=== PATIENT | male | born 1990 | race African-American/Black ===

== ENCOUNTER 2021-01-11 16:25 | Emergency (ER) | payer OTHER, SELFPAY ==
[2021-01-11 16:40] VITALS: BP 158/80; PULSE 64; RESP 16; TEMP 37; O2SAT 100
--- NOTE | 2021-01-11 17:25 | ED.EAR ---
HPI - Ear Problem General Chief complaint: Ear Stated complaint: Ear Pain Time Seen by Provider: 01/11/21 17:17 Source: patient and RN notes reviewed Mode of arrival: ambulatory Limitations: no limitations History of Present Illness HPI Narrative: Patient presents today complaining of bilateral ear pain x2 days, left greater than right. States he cannot hear from the left ear and this has been since he used some [id number] eardrops prior to arrival. He also has some rhinorrhea and a mild cough. He rates his pain 10/10 and has also been using some Tylenol with mild relief. MD Complaint: ear pain and decreased hearing Related Data Allergies Allergy/AdvReac Type Severity Reaction Status Date / Time No Known Allergies Allergy Verified 01/11/21 16:42 Review of Systems Review of Systems: CONSTITUTIONAL: Denies body aches, fever, chills, or sweats. EYES: Denies visual changes, redness, or discharge. ENT: Denies congestion, sore throat.+ Rhinorrhea, bilateral ear pain CARDIOVASCULAR: Denies chest pain, palpitations, or edema. RESPIRATORY: Denies dyspnea.+ Cough GASTROINTESTINAL: Denies abdominal pain, nausea, vomiting, or diarrhea. GENITOURINARY: Denies dysuria or hematuria. SKIN: Denies rash, itching, or wounds. MUSCULOSKELETAL: Denies back pain, joint pain, or myalgia. NEUROLOGIC: Denies headache, numbness, tingling, or weakness. PSYCH: Denies depression or anxiety. PMFSH Comments At time of signature, I have reviewed and agree with nursing past medical, surgical, social and family history unless otherwise noted. Please see nursing chart for further information. There is no relevant family history pertinent to the presenting complaint Exam Narrative: GENERAL: Well-appearing, well-nourished, and in moderate pain distress. HEAD: Normocephalic, atraumatic. EYES: EOMI. No redness or drainage. Conjunctivae normal. ENT: Mucous membranes pink and moist. Nares clear. No rhinorrhea. Bilateral TMs are erythematous and bulging with purulent material, left greater than right. Throat normal. Uvula midline. NECK: Normal AROM. Supple. No lymphadenopathy. CHEST: No respiratory distress. Clear to auscultation. HEART: Regular rate and rhythm. No murmur appreciated. Normal peripheral pulses. EXTREMITIES: Normal range of motion. No edema. SKIN: Warm, dry, no rash. Capillary refill normal. Normal skin turgor. NEURO: No focal deficits. Alert and oriented x3. Gait steady. PSYCH: Normal affect. No signs of depression or anxiety. Course Vital Signs Vital signs: Vital Signs Temperature 98.6 F 01/11/21 16:40 Pulse Rate 64 01/11/21 16:40 Respiratory Rate 16 01/11/21 16:40 Blood Pressure 158/80 H 01/11/21 16:40 Pulse Oximetry 100 01/11/21 16:40 Temperature 98.6 F 01/11/21 16:40 Pulse Rate 64 01/11/21 16:40 Respiratory Rate 16 01/11/21 16:40 Blood Pressure 158/80 H 01/11/21 16:40 Pulse Oximetry 100 01/11/21 16:40 Reviewed. Pt has been instructed to follow up with his PCP regarding his elevated blood pressure today. Medical Decision Making Differential Diagnosis Differential Diagnosis: Otitis media, otitis externa, ruptured TM, serous otitis, eustachian tube dysfunction, cerumen impaction Vital Signs Vital Signs: Vital Signs Temperature 98.6 F 01/11/21 16:40 Pulse Rate 64 01/11/21 16:40 Respiratory Rate 16 01/11/21 16:40 Blood Pressure 158/80 H 01/11/21 16:40 Pulse Oximetry 100 01/11/21 16:40 Temperature 98.6 F 01/11/21 16:40 Pulse Rate 64 01/11/21 16:40 Respiratory Rate 16 01/11/21 16:40 Blood Pressure 158/80 H 01/11/21 16:40 Pulse Oximetry 100 01/11/21 16:40 Critical Care Time Critical Care Time Critical Care Time: No Discharge Plan Discharge Clinical Impression: Acute suppurative otitis media of both ears without spontaneous rupture of tympanic membranes Qualifiers: Recurrence: non-recurrent Qualified Code(s): H66.003 - Acute suppurative otit
== END 2021-01-11 17:36 | disposition home or self-care (01) ==
PROVIDERS: Emergency Provider Nurse Practitioner
DX: H66.003 Acute suppurative otitis media without spontaneous rupture of ear drum, bilateral (principal)
CPT/HCPCS: 99213; G0463